=== PATIENT | female | born 1960 | race Caucasian/White ===

== ENCOUNTER 2018-10-21 08:23 | Inpatient (IN) | payer OTHER ==
[~2018-10-21] VITALS: Ht 157.5 cm; Wt 57.2 kg
[~2018-10-21 08:23] MED LIST: PROTONIX40 M1 PO; Z.0.MULTIVITAMINS1 E
--- OUTSIDE RECORDS SUMMARY | 2018-10-21 08:25 | XMS REPORT | Summary of Care ---
Author Organization Unknown Address Unknown Phone Unavailable Encounter HQ Girma_nico(WESLY) [id number] Date(s): 05/23/14 - 05/23/[address] Discharge Disposition: Home Physician Attending: Belén Croft MD Physician_Referring: Belén Croft MD Reason for Visit CHEST PAIN/786.59 Vital Signs Most recent to 1 oldest [Reference Range]: Height 160.02 cm (05/23/14 10:53 AM) Weight 53.636 kg (05/23/14 10:53 AM) Body Mass Index 20.95 m2 (05/23/14 10:53 AM) Problem List No data available for this section Allergies, Adverse Reactions, Alerts No data available for this section Medications No data available for this section Medications Administered During Your Visit No data available for this section Immunizations No data available for this section
--- OUTSIDE RECORDS SUMMARY | 2018-10-21 08:25 | XMS REPORT | Continuity of Care Document ---
Author Author [facility] Interface Address Unknown Phone Unavailable Problems Problem Status Onset Date Classification Date Reported Comments Source M25.50 /M35.01 /R07.89 / R42 / R51 / OK' Active 04/28/2017 [facility] CHEST PAIN Active 05/22/2014 [facility] CHEST PAIN/786.59 Active 05/22/2014 [facility] Medications Medication Details Route Status Patient Instructions Ordering Provider Order Date Source Allergies, Adverse Reactions, Alerts Substance Category Reaction Severity Reaction type Status Date Reported Comments Source Immunizations Immunization Date Given Site Status Last Updated Comments Source Results Order Name Results Value Reference Range Date Interpretation Comments Source Vital Signs Vital Sign Value Date Comments Source Weight 53.636 04/28/2017 [facility] BMI Calculated 20.95 04/28/2017 [facility] Height 160.02 cm 04/28/2017 [facility] Weight 53.636 05/23/2014 [facility] BMI Calculated 20.95 05/23/2014 [facility] Height 160.02 cm 05/23/2014 [facility] Encounters Location Location Details Encounter Type Encounter Number Reason For Visit Attending Provider ADM Date DC Date Status Source [facility] Outpatient [id number] Belén Croft 05/23/2014 05/24/2014 [facility] Out[facility] [id number] Belén Croft 04/28/2017 04/29/2017 [facility] Procedures Procedure Code Date Perfomer Comments Source
--- OUTSIDE RECORDS SUMMARY | 2018-10-21 08:25 | XMS REPORT | Summary of Care ---
Author Author [facility] Organization [facility] Address Unknown Phone Unavailable Encounter HQ Macey(WESLY) [id number] Date(s): 04/28/17 - 04/28/17 [address] [facility] [place] [address]- Discharge Disposition: Home or Self Care Attending Physician: Belén Croft MD Referring Physician: Belén Croft MD Vital Signs Most recent to 1 oldest [Reference Range]: Height 160.02 cm (04/28/17 1:03 PM) Weight 53.636 kg (04/28/17 1:03 PM) Body Mass Index 20.95 m2 (04/28/17 1:03 PM) Problem List No data available for this section Allergies, Adverse Reactions, Alerts No data available for this section Medications No data available for this section Results No data available for this section Immunizations No data available for this section Procedures No data available for this section Social History No data available for this section Assessment and Plan No data available for this section
--- OUTSIDE RECORDS SUMMARY | 2018-10-21 08:26 | XMS REPORT ---
Author Author [facility] Address Unknown Phone Unavailable Care Team Providers Care Housecleaner Floor Name Role Phone CLIENT, ACCOUNT Unavailable Unavailable Problems This patient has no known problems. Allergies, Adverse Reactions, Alerts This patient has no known allergies or adverse reactions. Medications This patient has no known medications. Encounters Start Date/Time End Date/Time Encounter Type Admission Type Attending [facility] Facility Care Department Encounter ID 2018-06-27 06:52:00 2018-06-27 23:59:00 Outpatient C CLIENT, ACCOUNT [facility] [id number] 2017-06-14 12:07:00 2017-06-14 23:59:00 Outpatient C CLIENT, ACCOUNT [facility] [id number] Results Test Description Test Time Test Comments Text Results Atomic Results Result Comments GLYCOHEMOGLOBIN 2018-06-27 09:38:00 Hb A1C % (test code=HBA) 5.0 % 4.2-6.3 LIPID [id number] 09:33:00* Test Item Value Reference Range Comments CHOLESTROL (test code=44A) 206 mg/dL 140-200 TRIGLYCERI (test code=42B) 52 mg/dL <=149 HDL (test code=83D) 120.0 mg/dL 40.0-60.0 LDL (test code=34B) 76 mg/dL <=99 CHL/HDL (test code=CHR) 1.7 0.0-3.4 [id number] 09:26:00* Test Item Value Reference Range Comments GLUCOSE (test code=06D) 82 mg/dL 75-100 [id number] 09:54:00* Test Item Value Reference Range Comments GLUCOSE (test code=06D) 88 mg/dL 75-100 LIPID [id number] 09:54:00* Test Item Value Reference Range Comments CHOLESTROL (test code=44A) 186 mg/dL 140-200 TRIGLYCERI (test code=42B) 62 mg/dL <=149 HDL (test code=83D) 86.0 mg/dL 40.0-60.0 LDL (test code=34B) 93 mg/dL <=99 CHL/HDL (test code=CHR) 2.2 0.0-3.4 [id number] 09:42:00* Test Item Value Reference Range Comments Hb A1C % (test code=HBA) 5.3 % 4.2-6.3
[2018-10-21] MEDS ORDERED: LEVOFLOXACIN500 MG PO (09:05)
[2018-10-21] MEDS ORDERED: HYDROXYCHLOROQ200 MG PO (09:05)
[2018-10-21] MEDS ORDERED: CELEBREX100 MG PO (09:05)
[2018-10-21] MEDS ORDERED: ROBITUSSIN-COU237 ML PO (09:08)
[2018-10-21] MEDS ORDERED: SODIUM CHLORIDE 0.9% 1000ML 1,000 ML IV STA (09:08)
[2018-10-21] MEDS ORDERED: DIAZEPAM5 MG PO (09:08)
[2018-10-21] MEDS ORDERED: ADVIL200 M1 PO (09:08)
[2018-10-21 09:49] LABS: BASOPHILS % 0.5 % (0.0-1.0); EOSINOPHILS # (AUTO) 0.1 (0.0-0.4); HEMATOCRIT 35.8 % (34.2-44.1); HEMOGLOBIN 12.6 g/dL (12.0-16.0); LYMPHOCYTES # (AUTO) 0.8 (1.0-3.2); LYMPHOCYTES % 13.7 % (18.0-39.1); MEAN CORPUSCULAR HEMOGLOBIN 33.2 pg (28-32); MEAN CORPUSCULAR HGB CONC 35.2 g/dL (31-35); MEAN CORPUSCULAR VOLUME 94.5 fL (81-99); MONOCYTES # (AUTO) 0.5 (0.2-0.8); NEUTROPHILS # (AUTO) 4.5 (2.1-6.9); NEUTROPHILS % 76.5 % (38.7-80.0); PLATELET COUNT 261 x10e3/uL (140-360); RED BLOOD COUNT 3.79 x10e6/uL (3.6-5.1); RED CELL DISTRIBUTION WIDTH 12.4 % (11.7-14.4)
[2018-10-21 09:52] LABS: INR 0.92; PROTHROMBIN TIME 12.8 seconds (11.9-14.5)
[2018-10-21 09:53] LABS: PARTIAL THROMBOPLASTIN TIME 49.9 seconds (23.8-35.5)
[2018-10-21 09:56] LABS: ALANINE AMINOTRANSFERASE 23 IU/L (0-55); ALBUMIN 2.9 g/dL (3.5-5.0); ALBUMIN/GLOBULIN RATIO 0.7 (0.8-2.0); ALKALINE PHOSPHATASE 85 IU/L (40-150); ANION GAP 15.3 mmol/L (8-16); BLOOD UREA NITROGEN 8 mg/dL (7-26); BUN/CREATININE RATIO 12 (6-25); CALCIUM 9.5 mg/dL (8.4-10.2); CARBON DIOXIDE 21 mmol/L (22-29); CHLORIDE 104 mmol/L (98-107); CREATINE KINASE 54 IU/L (29-168); CREATININE, SERUM 0.68 mg/dL (0.57-1.11); EST GLOMERULAR FILTRATION RATE > 60 ML/MIN (60-); GLUCOSE 105 mg/dL (74-118); MAGNESIUM 2.1 MG/DL (1.3-2.1); POTASSIUM 3.3 mmol/L (3.5-5.1); SODIUM 137 mmol/L (136-145)
[2018-10-21] MEDS ORDERED: POTASSIUM CHLORIDE 20 MEQ TAB CR PO NR (10:03)
[2018-10-21] MEDS ORDERED: ONDANSETRON HCL INJ 2MG/ML 2ML 2 MG/ML VIAL IV NR (10:03)
[2018-10-21] MEDS ORDERED: KETOROLAC TROMETHAMINE 30 MG/ML VIAL IV NR (10:30)
[2018-10-21] MEDS: AZITHROMYCIN 500MG/NS 250 ML 250 ML IV SCH (10:34)
--- NOTE | 2018-10-21 10:36 | Diagnostic Imaging Report ---
ADDENDUM #1 Chest x-rays performed 10/18/2018 and 10/29/2011 have become available for comparison. No change in bilateral pulmonary infiltrates from 10/18/2018 Signed by: Dr. Renetta Hernandez MD on 10/21/2018 10:44 AM ORIGINAL REPORT EXAMINATION: CHEST 2 VIEWS INDICATION: Recent diagnosis of pneumonia ^COUGH, SOB, PLEURITIC CP ^[id number] ^[id number] COMPARISON: None FINDINGS: PA and lateral views TUBES and LINES: None. LUNGS: Lungs are well inflated. Focal airspace opacities in the right middle lobe and base of the left lower lobe PLEURA: No pleural effusion or pneumothorax. Mild apical pleural-parenchymal thickening. HEART AND MEDIASTINUM: The cardiomediastinal silhouette is unremarkable.. BONES AND SOFT TISSUES: No focal osseous lesions. Surgical clips in the right axilla. UPPER ABDOMEN: No free air under the diaphragm. IMPRESSION: Bilateral airspace opacities suggestive of pneumonia. Signed by: Dr. Renetta Hernandez MD on 10/21/2018 10:33 AM
[2018-10-21 10:50] LABS: CLARITY,URINE CLEAR (CLEAR); COLOR,URINE YELLOW (YELLOW)
[2018-10-21 10:51] LABS: BILIRUBIN,URINE NEGATIVE (NEGATIVE); KETONES,URINE NEGATIVE (NEGATIVE); LEUKOCYTE ESTERASE ,URINE NEGATIVE (NEGATIVE); NITRITE,URINE NEGATIVE (NEGATIVE); PROTEIN,URINE DIPSTICK TRACE (NEGATIVE); URINE UROBILINOGEN 0.2 mg/dL (0.2 - 1)
[2018-10-21 10:52] LABS: EPITHELIAL CELLS,URINE MODERATE /LPF; TRANSITIONAL EPI CELLS,URINE MODERATE
[2018-10-21 10:53] LABS: BACTERIA,URINE FEW /HPF; WBC,URINE (MAN) 0-5 /HPF (0-5)
--- NOTE | 2018-10-21 10:56 | NUR ---
ERECTION SHOP SUPERVISOR AT BEDSIDE
[2018-10-21] MEDS ORDERED: METHYLPREDNISOLONE SOD SUCC 125 MG/2ML VIAL IV NR (11:15)
[2018-10-21] MEDS ORDERED: DIPHENHYDRAMINE HCL INJ 50 MG/ML VIAL IV NR (11:15)
[2018-10-21] MEDS ORDERED: FAMOTIDINE 20 MG/2 ML VIAL IV NR (11:38)
[2018-10-21] MEDS ORDERED: ENOXAPARIN SODIUM INJ 100 MG/ML SYR SC ONE (11:45)
[2018-10-21] MEDS ORDERED: ACETAMINOPHEN 325 MG TAB PO PRN (11:45)
[2018-10-21] MEDS ORDERED: KCL 20MEQ/.9 SOD CHL 1,000 ML IV ONE (11:45)
[2018-10-21] MEDS: CEFTRIAXONE SOD 1 GM/NS 50 ML 50 ML IV SCH (11:55)
[2018-10-21] MEDS: SODIUM CHLORIDE 0.9% 1000ML 1,000 ML IV SCH ×2 (12:00→22:20)
--- NOTE | 2018-10-21 13:47 | Diagnostic Imaging Report ---
CT chest pulmonary embolism protocol CPT code: 99195 INDICATION: ^PE PROTOCOL, STEROIDS AND BENADRYL GIVEN PRIOR TO EXAM PER ^[id number] ^[id number] TECHNIQUE: Thin collimation axial images obtained through the level of the pulmonary arteries with additional imaging through the chest following the uneventful administration of 58 cc of low osmolar, nonionic intravenous contrast. Images reconstructed into coronal and sagittal MIPs for complete evaluation of the tortuous and overlapping pulmonary vascular structures and to reduce patient radiation dose. Patient was premedicated with Solu-Medrol for contrast hypersensitivity (throat closing). RADIATION DOSE: Total DLP: 393 mGy*cm Estimated effective dose: (DLP x 0.015 x size factor) mSv CTDIvol has been reviewed. It is below the limits set by the Radiation Protocol Committee (RPC). Dose reduction techniques used: Automated exposure control, adjustment of the mAs and/or kVp according to patient size, standardized low-dose protocol, and/or iterative reconstruction technique. COMPARISON: Chest x-ray 0953 hours. CTA chest 10/31/2011 FINDINGS: Pulmonary artery: No filling defects are appreciated within the main, left, right, lobar or visualized segmental pulmonary arteries to suggest embolism. Aorta: The thoracic aorta is not aneurysmal. No evidence for dissection. Lymph nodes: No enlarged axillary or supraclavicular lymph nodes. Mediastinal lymph node tissue is mildly prominent but too indistinct fractured measurement.. Thyroid: Normal in size without mass in the visualized parenchyma. Mediastinum: Small amount of fluid in superior pericardial recess. The heart is normal in size. The esophagus is collapsed. Lungs: Right Lung: Apical pleural-parenchymal thickening is stable. Infiltrate in the right middle lobe. Patchy tree-in-bud opacities in the lower lobe. No discrete mass. Left Lung: Significant consolidation involving the posterior basal segment of the lower lobe. There is consolidation in the anterior basal segment of the lower lobe and in the lingula. Airways: Clear. No significant bronchial wall thickening or bronchiectasis. Pleura: No pleural effusion or pleural based mass. Abdomen: The gallbladder is absent. Visualized portions demonstrate no evidence of mass or lymphadenopathy. Bones: No focal osseous lesions. Soft tissues: Stable bilateral breast prostheses. IMPRESSION: 1. No evidence of pulmonary embolus or aortic dissection. 2. Multifocal pulmonary infiltrates, most significant in the left lower lobe, suggestive of pneumonia. Tree-in-bud opacities in the right lower lobe are suggestive of developing pneumonia. Prominent lymphoid tissue in the mediastinum is likely reactive. Recommend follow-up CT in 2-3 months to document interval change/ Signed by: Dr. Renetta Hernandez MD on 10/21/2018 1:44 PM
[2018-10-21 15:00] VITALS: BP 113/61
--- NOTE | 2018-10-21 15:00 | NUR ---
PATIENT RECEIVED FROM ER PER STRETCHER. ALERT AND VERBALLY RESPONSIVE. ASSISTED TO THE RESTROOM AND BACK TO BED. SKIN WARM AND DRY TO TOUCH, RESP EVEN AND UNLABORED, ABDOMEN SOFT AND NON DISTENDED WITH POSITIVE BS X 4 QUADS. DENIED PAIN AT THIS TIME. REQUESTED AND RECEIVED SOME SNACKS. PATIENT ORIENTED TO SURROUNDING. BED IN LOWER POSITION AND LOCKED, CALL LIGHT AT REACH. INSTRUCTED TO CALL FOR ASSISTANCE NEEDED.
[2018-10-21 15:12] VITALS: BP 113/61
--- NOTE | 2018-10-21 19:30 | NUR ---
patient received awake, alert, lying quietly in bed. vss. ivf continue to infuse without difficulty. pm assessment complete. noted at the bedside. patient instructed to call for assistance when needed.
[2018-10-21] MEDS: GUAIFENESIN/DEXTROMETHORPHAN LIQD 5 ML UDC PO PRN (19:50)
[2018-10-21] MEDS: KETOROLAC TROMETHAMINE 30 MG/ML VIAL IM PRN (19:50)
--- NOTE | 2018-10-21 19:50 | NUR ---
patient medicated with toradol 30 mg im for c/o right chest pain due to cough and robitussin dm 10 cc po for c/o cough.
[2018-10-21 20:00] VITALS: BP 114/66
[2018-10-21 21:34] LABS: CREATINE KINASE MB 0.3 ng/mL (0-5.0)
[2018-10-22] VITALS (7 sets, daily range): BP systolic 97–119; BP diastolic 55–60
[2018-10-22] MEDS: GUAIFENESIN/DEXTROMETHORPHAN LIQD 5 ML UDC PO PRN ×3 (03:15→21:01)
--- NOTE | 2018-10-22 03:15 | NUR ---
patient medicated with robitussin dm 10 cc po for c/o cough at this time.
--- NOTE | 2018-10-22 04:45 | NUR ---
3rd cardiac markers collected at this time.
[2018-10-22 04:55] LABS: BASOPHILS % 0.2 % (0.0-1.0); HEMATOCRIT 30.8 % (34.2-44.1); HEMOGLOBIN 10.6 g/dL (12.0-16.0); LYMPHOCYTES # (AUTO) 0.7 (1.0-3.2); LYMPHOCYTES % 12.1 % (18.0-39.1); MEAN CORPUSCULAR HEMOGLOBIN 33.7 pg (28-32); MEAN CORPUSCULAR HGB CONC 34.4 g/dL (31-35); MEAN CORPUSCULAR VOLUME 97.8 fL (81-99); MONOCYTES # (AUTO) 0.7 (0.2-0.8); MONOCYTES % 11.1 % (4.4-11.3); NEUTROPHILS # (AUTO) 4.5 (2.1-6.9); NEUTROPHILS % 76.3 % (38.7-80.0); PLATELET COUNT 206 x10e3/uL (140-360); RED BLOOD COUNT 3.15 x10e6/uL (3.6-5.1); RED CELL DISTRIBUTION WIDTH 12.6 % (11.7-14.4)
[2018-10-22 05:17] LABS: ALANINE AMINOTRANSFERASE 30 IU/L (0-55); ALBUMIN 2.3 g/dL (3.5-5.0); ALBUMIN/GLOBULIN RATIO 0.7 (0.8-2.0); ALKALINE PHOSPHATASE 70 IU/L (40-150); ANION GAP 9.9 mmol/L (8-16); BLOOD UREA NITROGEN 9 mg/dL (7-26); BUN/CREATININE RATIO 15 (6-25); CALCIUM 8.5 mg/dL (8.4-10.2); CARBON DIOXIDE 21 mmol/L (22-29); CHLORIDE 110 mmol/L (98-107); CREATININE, SERUM 0.59 mg/dL (0.57-1.11); EST GLOMERULAR FILTRATION RATE > 60 ML/MIN (60-); GLUCOSE 122 mg/dL (74-118); POTASSIUM 3.9 mmol/L (3.5-5.1); SODIUM 137 mmol/L (136-145)
[2018-10-22 05:33] LABS: CREATINE KINASE 34 IU/L (29-168)
[2018-10-22] MEDS: SODIUM CHLORIDE 0.9% 1000ML 1,000 ML IV SCH ×3 (06:37→19:45)
[2018-10-22] MEDS: KETOROLAC TROMETHAMINE 30 MG/ML VIAL IM PRN (07:25)
--- NOTE | 2018-10-22 07:25 | NUR ---
PATIENT IN BED RESTING WITH NO RESPIRATORY DISTRESS. C/O PAIN AND PAIN MEDICATION GIVEN. BED IN LOWER POSITION, CALL LIGHT AT REACH. WILL CLOSELY MONITOR.
[2018-10-22] MEDS ORDERED: DIAZEPAM 5 MG TAB PO SCH (09:00)
[2018-10-22] MEDS ORDERED: HYDROXYCHLOROQUINE SULFATE 200 MG TAB PO SCH ×2 (09:00→21:00)
[2018-10-22] MEDS ORDERED: PANTOPRAZOLE SODIUM 40 MG SUSPDR.PKT PO SCH (09:00)
[2018-10-22] MEDS: CELECOXIB 100 MG CAP PO SCH (09:24)
[2018-10-22] MEDS: AZITHROMYCIN 500MG/NS 250 ML 250 ML IV SCH (09:53)
[2018-10-22] MEDS ORDERED: DIAZEPAM 2 MG TAB PO PRN (10:15)
--- NOTE | 2018-10-22 11:12 | NUR ---
PATIENT ASSISTED WITH SHOWER AND BACK TO BED. ALL PERSONAL ITEMS CLOSE TO PATIENT. CALL LIGHT AT REACH.
[2018-10-22] MEDS: CEFTRIAXONE SOD 1 GM/NS 50 ML 50 ML IV SCH (12:00)
[2018-10-22] MEDS: ALBUTEROL/IPRATROPIUM 3 ML NEB NEB SCH ×2 (12:40→19:00)
--- NOTE | 2018-10-22 16:08 | NUR ---
PATIENT SITTING UP IN BED TALKING TO FAMILY MEMBER VISITING, NO COMPLAIN VOICED. BED IN LOWER POSITION, CALL LIGHT AT REACH.
[2018-10-23] VITALS (7 sets, daily range): BP systolic 106–125; BP diastolic 57–64
[2018-10-23] MEDS: SODIUM CHLORIDE 0.9% 1000ML 1,000 ML IV SCH ×2 (01:36→23:47)
[2018-10-23] MEDS: KETOROLAC TROMETHAMINE 30 MG/ML VIAL IM PRN (01:36)
[2018-10-23] MEDS: GUAIFENESIN/DEXTROMETHORPHAN LIQD 5 ML UDC PO PRN ×3 (01:36→20:18)
--- NOTE | 2018-10-23 06:11 | NUR ---
called in new consult to dr. gilbert
[2018-10-23] MEDS: ALBUTEROL/IPRATROPIUM 3 ML NEB NEB SCH ×4 (07:00→19:25)
[2018-10-23 07:01] LABS: BASOPHILS % 0.5 % (0.0-1.0); EOSINOPHILS # (AUTO) 0.1 (0.0-0.4); HEMATOCRIT 32.7 % (34.2-44.1); HEMOGLOBIN 11.1 g/dL (12.0-16.0); LYMPHOCYTES % 15.5 % (18.0-39.1); MEAN CORPUSCULAR HEMOGLOBIN 33.3 pg (28-32); MEAN CORPUSCULAR HGB CONC 33.9 g/dL (31-35); MEAN CORPUSCULAR VOLUME 98.2 fL (81-99); MONOCYTES # (AUTO) 0.7 (0.2-0.8); MONOCYTES % 11.2 % (4.4-11.3); NEUTROPHILS # (AUTO) 4.4 (2.1-6.9); NEUTROPHILS % 70.8 % (38.7-80.0); PLATELET COUNT 204 x10e3/uL (140-360); RED BLOOD COUNT 3.33 x10e6/uL (3.6-5.1); RED CELL DISTRIBUTION WIDTH 12.8 % (11.7-14.4)
[2018-10-23 07:24] LABS: ALANINE AMINOTRANSFERASE 27 IU/L (0-55); ALBUMIN 2.4 g/dL (3.5-5.0); ALBUMIN/GLOBULIN RATIO 0.8 (0.8-2.0); ALKALINE PHOSPHATASE 66 IU/L (40-150); ANION GAP 11.5 mmol/L (8-16); BLOOD UREA NITROGEN 7 mg/dL (7-26); BUN/CREATININE RATIO 13 (6-25); CALCIUM 8.3 mg/dL (8.4-10.2); CARBON DIOXIDE 21 mmol/L (22-29); CHLORIDE 112 mmol/L (98-107); CREATININE, SERUM 0.53 mg/dL (0.57-1.11); EST GLOMERULAR FILTRATION RATE > 60 ML/MIN (60-); GLUCOSE 88 mg/dL (74-118); POTASSIUM 3.5 mmol/L (3.5-5.1); SODIUM 141 mmol/L (136-145)
[2018-10-23] MEDS: ONDANSETRON HCL INJ 2MG/ML 2ML 2 MG/ML VIAL IV PRN ×3 (09:03→20:18)
[2018-10-23] MEDS: AZITHROMYCIN 500MG/NS 250 ML 250 ML IV SCH (09:05)
[2018-10-23] MEDS: PANTOPRAZOLE SOD 40 MG TABEC PO SCH (10:02)
[2018-10-23] MEDS: CELECOXIB 100 MG CAP PO SCH (10:02)
[2018-10-23] MEDS: CEFTRIAXONE SOD 1 GM/NS 50 ML 50 ML IV SCH (11:00)
[2018-10-23] MEDS: PIPER-TAZ 3.375 GM 50 ML IV SCH ×2 (16:58→22:52)
[2018-10-23] MEDS: VANCOMYCIN 1GM/NS 250 ML 250 ML IV SCH (16:58)
[2018-10-23 19:39] LABS: LYMPHOCYTES % (MANUAL) 8 % (19-48); MONOCYTES % (MANUAL) 7 % (3.4-9.0); NEUTROPHILS % (MANUAL) 84 % (40-74); PLATELET ESTIMATE ADEQUATE; PLATELET MORPHOLOGY COMMENT NORMAL; RBC MORPHOLOGY COMMENT NORMAL
--- NOTE | 2018-10-23 20:00 | NUR ---
Patient visited in room during nursing rounds. Patient alert and oriented x3. Patient ambulatory in room prn. at bedside. On IVF (NS at 125ml/hr) and sheduled IV antibiotics. Call mckee within reach. Will monitor closely.
[2018-10-23] MEDS: HYDROXYCHLOROQUINE SULFATE 200 MG TAB PO SCH (20:18)
--- NOTE | 2018-10-23 21:56 | Consultation ---
DATE OF CONSULTATION: Pulmonary consultation. REASON FOR THE CONSULT: Shortness of breath and pneumonia. HISTORY OF PRESENT ILLNESS: Ms. Tucker is a 58-year-old female with Sjogren syndrome. She is on Plaquenil and Celebrex at home. She is not on any biologic. She reported that she was in her usual state of health a month ago when her father got sick and she was taking care of him. She got the episode of pneumonia then, she got better and last Tuesday, she went again to see her father, who was septic and he and 5 of the family members got sick after seeing him. 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 Her CT scan of the chest showed multiple pulmonary infiltrate and there is a dense left lower lobe pneumonia. She reported that she had a pneumonia 10 years ago and after the last 10 years, she has been okay. She has never smoked in her life. She denies any chest pain, nausea, vomiting. She is having shortness of breath and coughing. REVIEW OF SYSTEMS: GENERAL: Denies any fever or chills. HEAD: Denies any head trauma. ENT: Denies any earaches. CVS: Denies any chest pain. RESPIRATORY: Shortness of breath. GI: Denies any nausea, vomiting. The rest of the review of systems are negative except as in HPI. PAST MEDICAL HISTORY: Sjogren syndrome. PAST SURGICAL HISTORY: None. FAMILY AND SOCIAL HISTORY: She does not smoke, does not drink. Works as an RN. PHYSICAL EXAMINATION: VITAL SIGNS: Temperature 98.2, pulse of 97, blood pressure 125/59, respiratory rate of 18, and O2 saturation 97% on 2 L. HEENT: Head atraumatic, normocephalic. NECK: Supple. CHEST: Bronchial breath sounds on the left base. HEART: S1, S2 audible. ABDOMEN: Soft, nontender. EXTREMITIES: No pedal edema. NEUROLOGIC: Awake and alert. No focal neurologic deficit. LABORATORY DATA: White count of 6000, hemoglobin 11.1, and platelets 204. Chemistry; sodium 141, potassium 3.5, chloride 112, BUN 7, creatinine 0.5. CT of the chest, I have reviewed the images, multifocal infiltrate, tree-in-bud opacities, and dense left lower lobe infiltrate. ASSESSMENT/PLAN: Ms. Poirrier is a 58-year-old female with Sjogren syndrome. Chest CT suggestive of pneumonia, symptoms are also suggestive of pneumonia. The patient has Sjogren syndrome. We will consider immunocompromise. RECOMMENDATIONS: 1. I will broaden the antibiotic coverage. She is on Rocephin and azithromycin. 2. Continue the patient on nebulizer treatment. 3. We will follow clinically. If the patient has no improvement, then may need bronchoscopy with BAL. This was explained to the patient in detail. 4. Oxygen as needed. MD BOLIVAR Tillman/MEGHNA /[id number]
[2018-10-24] VITALS (7 sets, daily range): BP systolic 100–127; BP diastolic 51–59
[2018-10-24] MEDS: ALBUTEROL/IPRATROPIUM 3 ML NEB NEB SCH ×4 (01:16→19:30)
[2018-10-24] MEDS: VANCOMYCIN 1GM/NS 250 ML 250 ML IV SCH ×2 (02:28→15:28)
[2018-10-24] MEDS: PIPER-TAZ 3.375 GM 50 ML IV SCH ×3 (06:16→22:25)
[2018-10-24] MEDS: PANTOPRAZOLE SOD 40 MG TABEC PO SCH (06:16)
[2018-10-24] MEDS ORDERED: PANTOPRAZOLE SOD 40 MG TABEC PO SCH (07:30)
[2018-10-24] MEDS: CELECOXIB 100 MG CAP PO SCH (09:01)
[2018-10-24] MEDS: AZITHROMYCIN 500MG/NS 250 ML 250 ML IV SCH (09:01)
[2018-10-24] MEDS: SODIUM CHLORIDE 0.9% 1000ML 1,000 ML IV SCH ×2 (09:20→19:45)
--- NOTE | 2018-10-24 19:10 | NUR ---
Received patient awake on bed, at the bedside, with ongoing IV fluids. Call light within easy reach, advised to call for assistance when needed, will continue monitor
[2018-10-24] MEDS: HYDROXYCHLOROQUINE SULFATE 200 MG TAB PO SCH (22:25)
[2018-10-24] MEDS: GUAIFENESIN/DEXTROMETHORPHAN LIQD 5 ML UDC PO PRN (22:25)
[2018-10-25] VITALS (8 sets, daily range): BP systolic 106–129; BP diastolic 57–73
[2018-10-25] MEDS: SODIUM CHLORIDE 0.9% 1000ML 1,000 ML IV SCH ×4 (00:26→21:08)
[2018-10-25] MEDS: ALBUTEROL/IPRATROPIUM 3 ML NEB NEB SCH ×3 (01:00→13:00)
[2018-10-25] MEDS: VANCOMYCIN 1GM/NS 250 ML 250 ML IV SCH ×2 (02:27→15:00)
[2018-10-25] MEDS: PIPER-TAZ 3.375 GM 50 ML IV SCH ×3 (05:08→21:08)
[2018-10-25] MEDS: CELECOXIB 100 MG CAP PO SCH (08:46)
[2018-10-25] MEDS: PANTOPRAZOLE SOD 40 MG TABEC PO SCH (08:46)
[2018-10-25] MEDS: AZITHROMYCIN 500MG/NS 250 ML 250 ML IV SCH (08:46)
[2018-10-25] MEDS: LOPERAMIDE HCL 2 MG CAP PO PRN (09:58)
--- NOTE | 2018-10-25 19:27 | NUR ---
PATIENT IS IN STABLE CONDITION WITH NO S/S OF RESPIRATORY DISTRESS. NO PAIN VOICED. IV FLUIDS INFUSING. CALL LIGHT IS WITHIN REACH-PATIENT INSTRUCTED TO CALL FOR ASSISTANCE NEEDED. BEDSIDE REPORT COMPLETED WITH ONCOMING NURSE.
[2018-10-25] MEDS: HYDROXYCHLOROQUINE SULFATE 200 MG TAB PO SCH (21:08)
[2018-10-25] MEDS ORDERED: LEVALBUTEROL HCL SOLN NEBU 1.25 MG/3 ML NEB HHN SCH (22:00)
[2018-10-25] MEDS: LEVALBUTEROL HCL SOLN NEBU 1.25 MG/3 ML NEB INH SCH (23:00)
[2018-10-26] VITALS (9 sets, daily range): BP systolic 112–130; BP diastolic 57–93
[2018-10-26] MEDS: LOPERAMIDE HCL 2 MG CAP PO PRN (01:54)
--- NOTE | 2018-10-26 02:09 | NUR ---
PRACHI CMUMINGS DRAWN NOW AND SENT FOR LABS.
[2018-10-26] MEDS: VANCOMYCIN 1GM/NS 250 ML 250 ML IV SCH ×2 (04:30→15:38)
--- NOTE | 2018-10-26 04:30 | NUR ---
Dr. Parker here for rounding. Ok to continue vanc.
[2018-10-26] MEDS: SODIUM CHLORIDE 0.9% 1000ML 1,000 ML IV SCH ×3 (04:37→20:56)
[2018-10-26] MEDS: KETOROLAC TROMETHAMINE 30 MG/ML VIAL IM PRN (06:31)
[2018-10-26] MEDS: PIPER-TAZ 3.375 GM 50 ML IV SCH ×3 (06:36→20:56)
[2018-10-26] MEDS: ONDANSETRON HCL INJ 2MG/ML 2ML 2 MG/ML VIAL IV PRN (06:36)
--- NOTE | 2018-10-26 06:48 | Diagnostic Imaging Report ---
EXAM: CT Abdomen and Pelvis WITHOUT contrast INDICATION: Pneumonia. COMPARISON: CT chest dated 10/21/2018. CT abdomen dated 10/31/2011. TECHNIQUE: Abdomen and pelvis were scanned utilizing a multidetector helical scanner from the lung base to the pubic symphysis without administration of IV contrast. Absence of intravenous contrast decreases sensitivity for detection of focal lesions and vascular pathology. Coronal and sagittal reformations were obtained. Routine protocol was performed. IV CONTRAST: None. ORAL CONTRAST: Gastrografin water mixture. RADIATION DOSE: Total DLP: 194.30 mGy*cm Estimated effective dose: (DLP x 0.015 x size factor) mSv COMPLICATIONS: None FINDINGS: LINES and TUBES: None. LOWER THORAX: Left lower lobe consolidation associated with a small pleural effusion. Small right pleural effusion associated with right basilar subsegmental atelectasis. Lingular and right middle lobe subsegmental atelectasis partially visualized. A millimeter groundglass nodule in the right lower lobe laterally on image 4. HEPATOBILIARY: No focal hepatic lesions. No biliary ductal dilation. GALLBLADDER: Surgically absent. SPLEEN: No splenomegaly. PANCREAS: No focal masses or ductal dilatation. ADRENALS: No adrenal nodules KIDNEYS/URETERS: No hydronephrosis. No cystic or solid mass lesions. No stones. GI TRACT: No abnormal distention, wall thickening, or evidence of bowel obstruction. Appendix is unremarkable. Moderate volume of stool within the colon. PELVIC ORGANS/BLADDER: Status post hysterectomy. LYMPH NODES: No lymphadenopathy. VESSELS: Unremarkable. PERITONEUM / RETROPERITONEUM: No free air or fluid. BONES: Unremarkable. SOFT TISSUES: Bilateral breast implants. IMPRESSION: 1. Left lower lobe consolidation. Interval development of bilateral pleural effusions. 2. No acute abdominal pelvic abnormality. Signed by: Dr. Remy Salas M.D. on 10/26/2018 6:45 AM
[2018-10-26] MEDS: LEVALBUTEROL HCL SOLN NEBU 1.25 MG/3 ML NEB INH SCH ×3 (07:00→20:45)
[2018-10-26 07:10] LABS: BASOPHILS % 0.7 % (0.0-1.0); EOSINOPHILS # (AUTO) 0.2 (0.0-0.4); EOSINOPHILS % 3.7 % (0.0-6.0); HEMATOCRIT 35.3 % (34.2-44.1); HEMOGLOBIN 11.6 g/dL (12.0-16.0); LYMPHOCYTES % 16.5 % (18.0-39.1); MEAN CORPUSCULAR HEMOGLOBIN 33.3 pg (28-32); MEAN CORPUSCULAR HGB CONC 32.9 g/dL (31-35); MEAN CORPUSCULAR VOLUME 101.4 fL (81-99); MONOCYTES # (AUTO) 0.3 (0.2-0.8); MONOCYTES % 4.7 % (4.4-11.3); NEUTROPHILS # (AUTO) 4.4 (2.1-6.9); NEUTROPHILS % 73.7 % (38.7-80.0); PLATELET COUNT 294 x10e3/uL (140-360); RED BLOOD COUNT 3.48 x10e6/uL (3.6-5.1)
[2018-10-26 07:21] LABS: ALANINE AMINOTRANSFERASE 17 IU/L (0-55); ALBUMIN 2.7 g/dL (3.5-5.0); ALBUMIN/GLOBULIN RATIO 0.8 (0.8-2.0); ALKALINE PHOSPHATASE 57 IU/L (40-150); ANION GAP 12.6 mmol/L (8-16); BLOOD UREA NITROGEN 6 mg/dL (7-26); BUN/CREATININE RATIO 10 (6-25); CALCIUM 8.4 mg/dL (8.4-10.2); CARBON DIOXIDE 24 mmol/L (22-29); CHLORIDE 108 mmol/L (98-107); CREATININE, SERUM 0.61 mg/dL (0.57-1.11); EST GLOMERULAR FILTRATION RATE > 60 ML/MIN (60-); GLUCOSE 88 mg/dL (74-118); POTASSIUM 3.6 mmol/L (3.5-5.1); SODIUM 141 mmol/L (136-145)
[2018-10-26 07:39] LABS: MAGNESIUM 2.1 MG/DL (1.3-2.1)
[2018-10-26] MEDS: CELECOXIB 200 MG CAP PO SCH (09:05)
[2018-10-26] MEDS: PANTOPRAZOLE SOD 40 MG TABEC PO SCH (09:10)
[2018-10-26] MEDS: AZITHROMYCIN 500MG/NS 250 ML 250 ML IV SCH (09:11)
--- NOTE | 2018-10-26 19:33 | NUR ---
PATIENT IS IN STABLE CONDITION WITH NO S/S OF RESPIRATORY DISTRESS. NO PAIN VOICED. IV FLUIDS INFUSING. TELEMETRY APPLIED. PRESENT IN ROOM. CALL LIGHT IS WITHIN REACH- PATIENT INSTRUCTED TO CALL FOR ASSISTANCE NEEDED. BEDSIDE REPORT GIVEN TO ONCOMING NURSE.
--- NOTE | 2018-10-26 20:27 | Consultation ---
DATE OF CONSULTATION: 10/26/2018 HISTORY OF PRESENT ILLNESS: This is 58 years old, who was initially admitted because of pneumonia, apparently has some abdominal pain in the left lower quadrant area, but indeed has little bit of diarrhea along with this problem. She had a CAT scan of the abdomen and pelvis that was done earlier this morning, which showed left lower lobe consolidation, otherwise unremarkable. She apparently had EGD and colonoscopy in April, which only shows gastritis and colon polyps. PAST MEDICAL PROBLEMS: Significant for history of Sjogren. ALLERGIES: NONE. SOCIAL HISTORY: No alcohol use. FAMILY HISTORY: Noncontributory. REVIEW OF SYSTEMS: Denies any chest pain. No shortness of breath. Denies any dysphagia or odynophagia. Denies any dysuria or hematuria or any kind of syncopal episodes. PHYSICAL EXAMINATION: GENERAL: She is awake and alert, appears to be stable, in no acute distress at this point. VITAL SIGNS: Afebrile HEENT: . Sclerae anicteric. NECK: Supple. HEART: Regular. LUNGS: Clear. ABDOMEN: Soft. There is no distention. At this point, it is nontender. EXTREMITIES: Demonstrate no clubbing. RADIOGRAPHS: The CAT scan is unremarkable except left lower lobe consolidation consistent with pneumonia. LABORATORY DATA: Today, hemoglobin is 11.6, hematocrit 35.3. Liver enzymes appear to be normal. Clostridium difficile is negative. IMPRESSION: 1. Abdominal pain, mainly in left lower quadrant area. 2. Diarrhea. Clostridium difficile is negative at this point. RECOMMENDATIONS: Continue on the current care at this point and antibiotic for pneumonia. Follow clinically. If symptoms persist or recur, then we may do a colonoscopy. Ugo Elmore MD DHD/MODL /[id number] cc: Nikhil Kurtz MD
[2018-10-26] MEDS: HYDROXYCHLOROQUINE SULFATE 200 MG TAB PO SCH (20:56)
[2018-10-27] MEDS: VANCOMYCIN 1GM/NS 250 ML 250 ML IV SCH (02:34)
[2018-10-27 04:00] VITALS: BP 138/69
[2018-10-27] MEDS: PIPER-TAZ 3.375 GM 50 ML IV SCH (05:33)
[2018-10-27] MEDS: SODIUM CHLORIDE 0.9% 1000ML 1,000 ML IV SCH (05:33)
[2018-10-27] MEDS: LOPERAMIDE HCL 2 MG CAP PO PRN (05:45)
--- NOTE | 2018-10-27 07:30 | NUR ---
pt up in chair no distress noted,denies pain,iv in fusing to lt ac patent
[2018-10-27] MEDS: LEVALBUTEROL HCL SOLN NEBU 1.25 MG/3 ML NEB INH SCH ×2 (07:45→15:28)
[2018-10-27 07:58] VITALS: BP 177/98
[2018-10-27] MEDS: CELECOXIB 200 MG CAP PO SCH (08:10)
[2018-10-27] MEDS: PANTOPRAZOLE SOD 40 MG TABEC PO SCH (08:10)
[2018-10-27] MEDS: AZITHROMYCIN 500MG/NS 250 ML 250 ML IV SCH (08:10)
[2018-10-27 12:13] VITALS: BP 124/72
--- NOTE | 2018-10-27 16:30 | NUR ---
PT DISCHARGED HOME IV DCD WITHOUT RDNESSOR SWELLING ,NO DISTRESS NOTED,TRANSPORTED TO [facility] VIA W/C
--- NOTE | 2018-10-30 07:03 | Discharge Summary ---
DISCHARGE DIAGNOSIS: Community-acquired pneumonia. HISTORY OF PRESENT ILLNESS AND HOSPITAL COURSE: The patient is a 58-year-old lady, who presented with failure of outpatient treatment of pneumonia due to her Sjogren's disease. So, she was brought in and placed on IV antibiotics and was seen by Pulmonary where she made significant improvements in her overall symptoms. She did have some initial pleurisy that also resolved by the time of discharge. During her hospitalization, she did have 1 episode of acute onset of lower left quadrant abdominal pain, her laboratory data was unremarkable, CT scan was unremarkable, and it passed within a few hours on its own and had no further recurrence of that with the rest of her hospitalization. At the time of discharge, her lung exams were clear. Vital signs were stable. She was afebrile. White count was normal. She was really adamant and wanted to go home. So, she was sent home with natalie Guillen, to follow up with primary care physician in 1-2 weeks. Please see hospital chart for full details. MD PARAMJIT Mock/MEGHNA /[id number]
== END 2018-10-27 16:26 | disposition home or self-care (01) | DRG 195 ==
LOC: ER 08:23 → ERHOLD 11:52 → MED/SURG3 15:00
PROVIDERS: ADMIT Internal Medicine; ATTEND Internal Medicine
DX: J18.9 Pneumonia, unspecified organism (principal); M35.00 Sjogren syndrome, unspecified; R19.7 Diarrhea, unspecified; K21.9 Gastro-esophageal reflux disease without esophagitis; D64.9 Anemia, unspecified; R10.32 Left lower quadrant pain; R09.1 Pleurisy; Z85.3 Personal history of malignant neoplasm of breast; Z82.49 Family history of ischemic heart disease and other diseases of the circulatory system; Z88.5 Allergy status to narcotic agent; Z88.8 Allergy status to other drugs, medicaments and biological substances; Z91.041 Radiographic dye allergy status
CPT/HCPCS: 36415; 71046; 71260; 74176; 80053; 80202; 81001; 82150; 82550; 82553; 83605; 83690; 83735; 83880; 84484; 85025; 85379; 85610; 85730; 87040; 87070; 87086; 87205; 87400; 87493; 93005; 93306; 94640; 96361; 99284; J0456; J0696; J1200; J1650; J1885; J2405; J2543; J3370; J7030

== ENCOUNTER 2019-09-21 05:54 | Emergency (ER) | payer OTHER ==
[~2019-09-21] VITALS: Ht 157.5 cm; Wt 57.2 kg
[~2019-09-21 05:54] MED LIST changes: +ADVIL200 M1 PO; +CELEBREX100 MG PO; +DIAZEPAM5 MG PO; +HYDROXYCHLOROQ200 MG PO; +LEVOFLOXACIN500 MG PO; +ROBITUSSIN-COU237 ML PO
[2019-09-21] MEDS ORDERED: ONDANSETRON HCL INJ 2MG/ML 2ML 2 MG/ML VIAL IV STA (06:12)
[2019-09-21 06:28] LABS: BASOPHILS % 0.9 % (0.0-1.0); EOSINOPHILS # (AUTO) 0.1 (0.0-0.4); EOSINOPHILS % 2.4 % (0.0-6.0); HEMATOCRIT 44.4 % (34.2-44.1); LYMPHOCYTES # (AUTO) 1.5 (1.0-3.2); LYMPHOCYTES % 44.6 % (18.0-39.1); MEAN CORPUSCULAR HEMOGLOBIN 33.3 pg (28-32); MEAN CORPUSCULAR HGB CONC 33.8 g/dL (31-35); MEAN CORPUSCULAR VOLUME 98.7 fL (81-99); MONOCYTES # (AUTO) 0.2 (0.2-0.8); MONOCYTES % 5.4 % (4.4-11.3); NEUTROPHILS # (AUTO) 1.6 (2.1-6.9); NEUTROPHILS % 46.7 % (38.7-80.0); PLATELET COUNT 208 x10e3/uL (140-360); RED CELL DISTRIBUTION WIDTH 12.8 % (11.7-14.4)
[2019-09-21 06:50] LABS: ALANINE AMINOTRANSFERASE 21 IU/L (0-55); ALBUMIN 4.5 g/dL (3.5-5.0); ALBUMIN/GLOBULIN RATIO 1.4 (0.8-2.0); ALKALINE PHOSPHATASE 53 IU/L (40-150); ANION GAP 17.1 mmol/L (8-16); BLOOD UREA NITROGEN 16 mg/dL (7-26); BUN/CREATININE RATIO 19 (6-25); CALCIUM 9.9 mg/dL (8.4-10.2); CARBON DIOXIDE 23 mmol/L (22-29); CHLORIDE 104 mmol/L (98-107); CREATINE KINASE 57 IU/L (29-168); CREATININE, SERUM 0.83 mg/dL (0.57-1.11); EST GLOMERULAR FILTRATION RATE > 60 ML/MIN (60-); GLUCOSE 89 mg/dL (74-118); POTASSIUM 4.1 mmol/L (3.5-5.1); SODIUM 140 mmol/L (136-145)
--- NOTE | 2019-09-21 06:56 | Diagnostic Imaging Report ---
ADDENDUM #1 EXAMINATION: CHEST SINGLE AP (PORTABLE) Signed by: Dr. Remy Salas M.D. on 09/21/2019 7:33 AM ORIGINAL REPORT EXAMINATION: CHEST SINGLE (PORTABLE) INDICATION: Shortness of breath. History of prior pneumonia. COMPARISON: 10/21/2018. FINDINGS: PA and lateral views TUBES and LINES: None. LUNGS: Lungs are well inflated. Mildly increased density in the lower hemithorax bilaterally suggestive of summation of shadows. Mild right basilar subsegmental atelectasis. PLEURA: No pleural effusion or pneumothorax. Mild apical pleural-parenchymal thickening. HEART AND MEDIASTINUM: The cardiomediastinal silhouette is unremarkable.. BONES AND SOFT TISSUES: No focal osseous lesions. Surgical clips in the right axilla. UPPER ABDOMEN: No free air under the diaphragm. IMPRESSION: Right basilar subsegmental atelectasis. Recommend chest PA and lateral views of patient's condition permits. Signed by: Dr. Remy Salas M.D. on 09/21/2019 6:53 AM
[2019-09-21 07:11] LABS: AMYLASE 83 U/L (25-125); LIPASE 37 U/L (8-78)
--- NOTE | 2019-09-21 07:34 | Diagnostic Imaging Report ---
EXAMINATION: CHEST 2 VIEWS INDICATION: Shortness of breath. History of prior pneumonia. COMPARISON: Chest AP portable on 02/2020 at 6:11 AM. FINDINGS: PA and lateral views TUBES and LINES: None. LUNGS: Lungs are well inflated. Mildly increased density in the lower hemithorax bilaterally suggestive of summation of shadows. Mild right basilar subsegmental atelectasis. PLEURA: No pleural effusion or pneumothorax. Mild apical pleural-parenchymal thickening. HEART AND MEDIASTINUM: The cardiomediastinal silhouette is unremarkable.. BONES AND SOFT TISSUES: No focal osseous lesions. Surgical clips in the right axilla. Breast implants. UPPER ABDOMEN: No free air under the diaphragm. Cholecystectomy clips. IMPRESSION: Right basilar subsegmental atelectasis. No consolidation. Signed by: Dr. Remy Salas M.D. on 09/21/2019 7:31 AM
== END 2019-09-21 07:51 | disposition home or self-care (01) ==
LOC: ER 05:54
DX: R06.00 Dyspnea, unspecified (principal); Z88.5 Allergy status to narcotic agent; Z91.041 Radiographic dye allergy status; Z80.3 Family history of malignant neoplasm of breast
CPT/HCPCS: 36415; 71045; 71046; 80053; 82150; 82550; 82553; 83690; 84484; 85025; 93005; 99284; J2405